=== PATIENT | female | born 1970 | race Caucasian/White ===

== ENCOUNTER 2024-03-20 07:15 | Day surgery (SDC) | payer OTHER ==
[~2024-03-20] VITALS: Ht 165.1 cm; Wt 60.8 kg
[2024-03-20 08:25] LABS: BASOPHILS % (AUTO) 0.5 % (0.0-2.0); EOSINOPHILS # (AUTO) 0.2 K/uL (0-0.4); EOSINOPHILS % (AUTO) 2.4 % (0.0-4.0); HEMATOCRIT 37.7 % (36-48); HEMOGLOBIN 12.8 g/dL (12.0-16.0); LYMPHOCYTES # (AUTO) 3.2 K/uL (2.5-16.5); LYMPHOCYTES % (AUTO) 33.8 % (20.5-51.1); MEAN CORPUSCULAR HEMOGLOBIN 31 pg (27-31); MEAN CORPUSCULAR HGB CONC 34 g/dL (33-37); MEAN CORPUSCULAR VOLUME 91.9 fL (80-94); MONOCYTES # (AUTO) 0.6 K/uL (0.8-1.0); MONOCYTES % (AUTO) 6.1 % (1.7-9.3); NEUTROPHILS # (AUTO) 5.4 K/uL (1.8-7.7); NEUTROPHILS % (AUTO) 57.2 % (42.2-75.2); PLATELET COUNT (AUTO) 271 K/uL (140-450); RED CELL DISTRIBUTION WIDTH 13.9 % (11.6-13.7); WHITE BLOOD COUNT (AUTO) 9.4 K/uL (4.8-10.8)
[2024-03-20 08:31] LABS: ALBUMIN 3.7 g/dL (3.4-5.0); ANION GAP 14.6 (8-16); CALCIUM 9.1 mg/dL (8.5-10.1); CARBON DIOXIDE 25.3 mmol/L (21-32); CREATININE 0.4 mg/dL (0.6-1.3); POTASSIUM 4.9 mmol/L (3.5-5.1); TOTAL BILIRUBIN 0.5 mg/dL (0.0-1.0); TOTAL PROTEIN, SERUM 7.1 g/dL (6.4-8.2)
[2024-03-20 08:39] LABS: INR 0.97 (0.8-1.2); PROTHROMBIN TIME 10.2 secs (10.8-13.4)
[2024-03-20] MEDS ORDERED: MIDAZOLAM 2 MG/2 ML VIAL ONE (09:29)
[2024-03-20] MEDS ORDERED: fentaNYL citrate 0.05 MG/ML VIAL ONE (09:29)
[2024-03-20] MEDS ORDERED: LIDOCAINE/EPI 1% 1:100000 20 ML VIAL INJ ONE (09:35)
[2024-03-20] MEDS ORDERED: BUPIVACAINE-MPF 0.25% 30 ML VIAL INJ ONE (09:35)
[2024-03-20] MEDS ORDERED: PROPOFOL 200 MG/20 ML VIAL IV ONE (10:06)
[2024-03-20] MEDS ORDERED: METOCLOPRAMIDE 10 MG/2 ML INJ VIAL ONE (10:06)
[2024-03-20] MEDS ORDERED: ONDANSETRON 4 MG/2 ML VIAL ONE (10:06)
[2024-03-20] MEDS ORDERED: ROCURONIUM 50 MG/5 ML VIAL IV ONE (10:06)
[2024-03-20] MEDS ORDERED: LIDOCAINE MPF 2% 100 MG/5 ML VIAL INJ ONE (10:07)
[2024-03-20] MEDS ORDERED: KETOROLAC 30 MG/ML VIAL ONE (10:40)
[2024-03-20] MEDS ORDERED: SUGAMMADEX SODIUM 200 MG/2 ML VIAL IV ONE (10:55)
[2024-03-20] MEDS ORDERED: MEPERIDINE 25 MG/ML SYR IVP PRN (11:25)
[2024-03-20] MEDS ORDERED: diphenhydrAMINE 50 MG/ML VIAL IVP PRN (11:25)
[2024-03-20] MEDS ORDERED: ONDANSETRON 4 MG/2 ML VIAL IVP PRN (11:25)
[2024-03-20] MEDS ORDERED: INSULIN LISPRO SLIDING SCALE 100 UNITS/ML VIAL SUBQ PRN (11:25)
[2024-03-20] MEDS ORDERED: NACL 0.9% 1,000 ML IV SCH (11:25)
[2024-03-20] MEDS ORDERED: KETOROLAC 30 MG/ML VIAL IM PRN (11:25)
[2024-03-20] MEDS ORDERED: ACET-10509 PO (11:29)
[2024-03-20] MEDS ORDERED: SIME80CT27 PO (11:29)
[2024-03-20] MEDS: HYDROmorphone 1 MG/ML AMP IVP PRN (11:35)
[2024-03-20] MEDS ORDERED: HYDROmorphone PFS 2 MG/ML SYR ONE (11:49)
[2024-03-20] MEDS ORDERED: MORPHINE SULFATE 2 MG/ML SYR IVP PRN (11:50)
== END 2024-03-20 14:00 | disposition home or self-care (01) ==
LOC: MOR 07:15 → MMU 07:20 → MOR 14:00
PROVIDERS: ATTEND Obstetrics & Gynecology
DX: N81.4 Uterovaginal prolapse, unspecified (principal); N94.10 Unspecified dyspareunia; N94.6 Dysmenorrhea, unspecified; I10 Essential (primary) hypertension; E11.9 Type 2 diabetes mellitus without complications; E78.00 Pure hypercholesterolemia, unspecified; F17.210 Nicotine dependence, cigarettes, uncomplicated
CPT/HCPCS: 36415; 58552; 80053; 82948; 84702; 85025; 85610; 86886; 86900; 86901; 93005; J0690; J1170; J1885; J2001; J2250; J2405; J2704; J2765; J3010; J3490; J7030; J7060